=== PATIENT | male | born 1950 | race Caucasian/White ===

== ENCOUNTER 2022-08-16 21:46 | Inpatient (IN) | payer MEDICARE, OTHER ==
[~2022-08-16] VITALS: Ht 182.9 cm; Wt 74.4 kg
--- NOTE | 2022-08-16 21:50 | NUR ---
Dr. Michael at bedside. MSE in progress.
--- NOTE | 2022-08-16 21:56 | NUR ---
Patient is medically cleared by Dr. Michael.
--- NOTE | 2022-08-16 21:58 | NUR ---
Brittani notified for psych evaul.
[2022-08-16] MEDS ORDERED: LATA2.5D15 EACHEYE (22:06)
[2022-08-16] MEDS ORDERED: LOVA20TA2 PO (22:06)
[2022-08-16] MEDS ORDERED: METF-440 PO (22:06)
[2022-08-16] MEDS ORDERED: AMLO1CAP PO (22:06)
[2022-08-16] MEDS ORDERED: LINA5TAB PO (22:06)
--- NOTE | 2022-08-16 23:15 | NUR ---
Brittani has arrived.
--- NOTE | 2022-08-16 23:29 | NUR ---
Brittani at bedside.
--- NOTE | 2022-08-16 23:45 | NUR ---
Report given to Jimmy [place] [facility]
[2022-08-17] MEDS ORDERED: MAG HYDROX/AL HYDROX/SIMETH 30 ML LIQUID UDC PO PRN (00:15)
[2022-08-17] MEDS ORDERED: ZOLPIDEM 5 MG TABLET PO PRN (00:15)
[2022-08-17] MEDS ORDERED: ACETAMINOPHEN 325 MG TABLET PO PRN (00:15)
[2022-08-17] MEDS ORDERED: LORAZEPAM 1 MG TABLET PO PRN (00:15)
[2022-08-17] MEDS ORDERED: MAGNESIUM HYDROXIDE 30 ML LIQUID UDC PO PRN (00:15)
[2022-08-17] MEDS ORDERED: BLOOD SUGAR DIAGNOSTIC 1 EACH STRIP VI ONE (00:15)
--- NOTE | 2022-08-17 00:15 | NUR ---
Pt. admitted to [facility] , under care of Dr. Falcon/Nancy, RETAIL CASHIER Belongs List completed SHAYAN Wagner aware of patient's arrival to unit.
--- NOTE | 2022-08-17 00:30 | NUR ---
Admission Note: Admitted a 72 year male, brought to the ER from [facility] to be psychiatric evaluated. Pt was placed on a 5150 hold for GD and DTS status. Per hold ,pt was voicing SI and refusing to take antidepressant medications. Pt has previous hospitalizations and was diagnose with major depression and dementia. Up on Face to Face evaluation ,Pt seems guarded, withdrawn, depressed, low energy, disheveled unkept appearance. Pt is alert x3 but ambulatory with unsteady gate. Pt was cooperative with vital signs and physical assessment. Pt has a wound on right posterior ankle, wound consult was order. Pt also has redness and abrasion on sacrum area, Z-guard order was put in.Pt was offered a brief orientation to unit rules and policies. Pt was given a copy of Patients Rights handbook and Advisement. Pt belongings were accounted, no contraband. Pt is currently free from pain or any discomfort. Emotional support provided. Verbally contracted was made with this leader writer for safety. Fall and safety precautions Implemented. No acute distress noted at this time . Will continue to monitor for an increase in a depressive mood and signs of withdrawal and lack of interaction with other.
[2022-08-17 00:57] VITALS: BP 140/65
[2022-08-17] MEDS ORDERED: REMEDY ESSENTIAL ZINC PASTE 113 GM TOP PRN (01:30)
[2022-08-17 07:40] VITALS: BP 110/67
[2022-08-17] MEDS: VENLAFAXINE XR 37.5 MG CAP.SR.24H PO SCH (10:13)
[2022-08-17 10:37] LABS: THYROID STIMULATING HORMONE 0.898 mIU/mL (0.358-3.740)
[2022-08-17 16:13] VITALS: BP 128/71
[2022-08-17 20:00] VITALS: BP 140/60
[2022-08-17] MEDS: ATORVASTATIN 10 MG TABLET PO SCH (20:46)
[2022-08-17] MEDS: QUETIAPINE FUMARATE 25 MG TABLET PO SCH (20:46)
[2022-08-18 07:36] LABS: MEAN CORPUSCULAR HEMOGLOBIN 32.1 uug (23.8-33.4); MEAN CORPUSCULAR VOLUME 91.1 fL (73.0-96.2); PLATELET COUNT (AUTO) 162 K/uL (152-348)
[2022-08-18 07:48] VITALS: BP 138/74
[2022-08-18 07:54] LABS: BILIRUBIN,TOTAL 0.3 mg/dL (0.2-1.0); CREATININE 0.8 mg/dL (0.6-1.3); MAGNESIUM 1.9 mg/dL (1.8-2.4); PHOSPHOROUS 4.1 mg/dL (2.5-4.9); POTASSIUM 3.5 mmol/L (3.5-5.1); TOTAL PROTEIN, SERUM 6.3 g/dL (6.4-8.2)
[2022-08-18] MEDS: LINAGLIPTIN 5 MG TABLET PO SCH (08:47)
[2022-08-18] MEDS: VENLAFAXINE XR 37.5 MG CAP.SR.24H PO SCH (08:47)
[2022-08-18] MEDS: BENAZEPRIL HCL 20 MG TABLET PO SCH (08:48)
[2022-08-18] MEDS: AMLODIPINE 10 MG TABLET PO SCH (08:48)
[2022-08-18] MEDS ORDERED: Medication Not On Formulary EA (Amlodipine Besylate/Benazepril (Lotrel 10-20 Mg Capsule) PO SCH (09:00)
--- NOTE | 2022-08-18 14:28 | NUR ---
Patient is alert and oriented x 3,Isolative,withdrawn and depressed. Denies SI. Re-assured prn. Encouraged to get out of his room at times. Safety checks Q15 minutes as scheduled. Will continue to monitor.
[2022-08-18 16:19] VITALS: BP 110/66
[2022-08-18] MEDS ORDERED: LATANOPROST OPHT DROP 2.5 ML BOTTLE EACHEYE SCH (18:00)
[2022-08-18 20:03] VITALS: BP 131/68
[2022-08-18] MEDS: ATORVASTATIN 10 MG TABLET PO SCH (21:24)
[2022-08-18] MEDS: QUETIAPINE FUMARATE 25 MG TABLET PO SCH (21:26)
--- NOTE | 2022-08-19 06:08 | NUR ---
Pt is ambulatory, A/O X3, depressed, isolative, withdrawn and guarded. Pt does not interacts with staff or peers. Pt does not have a bailable plan of care. Pt denies SI and verbally contracted with this technical writer and editor for safety. Pt is compliant with medications and nursing care. Encourage pt to ventilate feelings. Reassurance provided, Safety measures put in place. Continue to monitor for safety, continue with treatment plan.
--- NOTE | 2022-08-19 07:30 | NUR ---
GPS Nursing Notes: Patient awake in bed, alert x 3, denies pain or discomforts at this time. Patient also denies SI/HI/VH/AH, stated, " I dont have a plan to hurt my self", encourage patient to express feeling and thought in appropriated manner. Patient contracted for safety at this time, fall and safety precautions implemented, emotional support provided. Will continue to monitor.
[2022-08-19] MEDS: LINAGLIPTIN 5 MG TABLET PO SCH (08:20)
[2022-08-19] MEDS: BENAZEPRIL HCL 20 MG TABLET PO SCH (08:20)
[2022-08-19 08:21] VITALS: BP 112/64
[2022-08-19] MEDS: AMLODIPINE 10 MG TABLET PO SCH (08:21)
[2022-08-19] MEDS: VENLAFAXINE XR 37.5 MG CAP.SR.24H PO SCH (08:26)
--- NOTE | 2022-08-19 10:37 | NUR ---
WOUND CARE CONSULT: PT PRESENTS WITH STAGE 2 SACRAL ULCER AND RT ANKLE ULCER, PRESENT ON ADMISSION. PT STATES HAS HAD THESE FOR AT LEAST A MONTH. DR WILSON CALLED FOR DPM CONSULT. DISCUSSED WOUND CARE AND SKIN PROTECTION WITH NURSING STAFF. IN AGREEMENT WITH PLAN OF CARE. Addendum: 08/19/22 at 1046 by MEHDI COVINGTON RN Amended: Links added.
--- NOTE | 2022-08-19 11:21 | NUR ---
GPS 14 Day hold Certification: Patient place on 5250, certification given to patient and explained. Patient was informed that a certification review hearing will be held with in four days. Also, patient's right advocate will call to provide city carrier assistant on answering his questions. The court has been notified of this certification via [facility] portal on this day.
--- NOTE | 2022-08-19 11:52 | NUR ---
[place] Initial Discharge Note: Pt was brought from [facility] located at [address] [facility]. [place] is currently working with pt's sister/DPOA, Olivia ([phone]) for pt's discharge location. [place] will continue to work with MD lauro and Olivia for pt's safe and proper discharge plan.
--- NOTE | 2022-08-19 11:56 | NUR ---
GPS Nursing notes: Patient seen by wound nurse today. Patient is isolative, flat affect denies pain or discomforts, Denies SI/HI/VH/AH, all needs met, will continue to monitor.
--- NOTE | 2022-08-19 13:36 | NUR ---
GPS Nursing notes: Patient is in his room,lying in bed, isolative, withdrawn, speaks only when spoken to. Encourage patient to reposition in bed q 2 hours and as need it for wound management, treatment done to sacral and right ankle done as ordered, consult with Tallier called in by Wound nurse. patient continue to denies SI/HI/VH/AH, patient contracted for safety. Emotional support provided. Will continue to monitor.
[2022-08-19 16:23] VITALS: BP 99/63
[2022-08-19] MEDS ORDERED: LATANOPROST OPHT DROP 2.5 ML BOTTLE EACHEYE SCH (18:05)
--- NOTE | 2022-08-19 18:23 | NUR ---
GPS Nursing notes: Patient is guarded, withdrawn, refused to participate with self-care or groups, continues to denies Self-harm, patient stated, "I just said that I want to hurt myself, because I was having a bad day at the facility I was at". Patient denies feel Suicidal at this time, emotional support provided. Contracted for safety. Dinkey Locomotive Engineer also spoke to sister (Olivia) per family member, she is the POA, and she will fax POA documents tomorrow @ [phone], technicians and trades workers aware. Will continue to monitor.
[2022-08-19 19:56] VITALS: BP 110/66
[2022-08-19] MEDS: LATANOPROST OPHT DROP 2.5 ML BOTTLE EACHEYE SCH (20:23)
[2022-08-19] MEDS: QUETIAPINE FUMARATE 25 MG TABLET PO SCH (20:23)
[2022-08-19] MEDS: ATORVASTATIN 10 MG TABLET PO SCH (20:23)
--- NOTE | 2022-08-20 06:31 | NUR ---
GPS: Pt.slept 7.30 last night. Goes to the bathroom for elimination purposes. Environment kept safe and hazard free at all times. Denies SI. Med.compliant. Needs attended.
[2022-08-20 08:12] VITALS: BP 123/67
[2022-08-20] MEDS: AMLODIPINE 10 MG TABLET PO SCH (08:34)
[2022-08-20] MEDS: VENLAFAXINE XR 37.5 MG CAP.SR.24H PO SCH (08:34)
[2022-08-20] MEDS: BENAZEPRIL HCL 20 MG TABLET PO SCH (08:34)
[2022-08-20] MEDS: LINAGLIPTIN 5 MG TABLET PO SCH (08:34)
[2022-08-20] MEDS: MEDIHONEY= THERAHONEY 1.5 OZ TUBE TOP SCH ×2 (08:35→17:20)
[2022-08-20] MEDS: AMMONIUM LACTATE 12% LOTION 225 GM BOTTLE TP SCH ×2 (08:35→17:21)
[2022-08-20] MEDS: SODIUM HYPOCHLORITE 0.125% (QUARTER STRENGTH) 473 ML BOTTLE TP SCH ×2 (08:40→17:20)
--- NOTE | 2022-08-20 15:38 | NUR ---
Received patient sleeping in his room. Patient is A/O X 3 to person, place. Patient is withdrawn, isolative, cooperative with nursing care, compliant with medications, depressed, not engaged in social activities. Patient does not requires assistance with ADL. Patient is encourage to vent feelings. Fall and safety precautions implemented.
[2022-08-20 16:19] VITALS: BP 121/66
[2022-08-20 20:00] VITALS: BP 140/66
[2022-08-20] MEDS: ATORVASTATIN 10 MG TABLET PO SCH (20:12)
[2022-08-20] MEDS: QUETIAPINE FUMARATE 25 MG TABLET PO SCH (20:12)
[2022-08-20] MEDS: LATANOPROST OPHT DROP 2.5 ML BOTTLE EACHEYE SCH (20:12)
[2022-08-21 07:51] VITALS: BP 115/73
[2022-08-21] MEDS: LINAGLIPTIN 5 MG TABLET PO SCH (08:58)
[2022-08-21] MEDS: AMLODIPINE 10 MG TABLET PO SCH (08:59)
[2022-08-21] MEDS: BENAZEPRIL HCL 20 MG TABLET PO SCH (09:00)
[2022-08-21] MEDS: VENLAFAXINE XR 37.5 MG CAP.SR.24H PO SCH (09:00)
[2022-08-21] MEDS: MEDIHONEY= THERAHONEY 1.5 OZ TUBE TOP SCH ×2 (09:00→17:41)
[2022-08-21] MEDS: AMMONIUM LACTATE 12% LOTION 225 GM BOTTLE TP SCH ×2 (09:01→17:41)
[2022-08-21] MEDS: SODIUM HYPOCHLORITE 0.125% (QUARTER STRENGTH) 473 ML BOTTLE TP SCH ×2 (09:01→17:42)
[2022-08-21 15:27] VITALS: BP 137/76
--- NOTE | 2022-08-21 15:36 | NUR ---
Received patient sleeping in his room. Patient is depressed, withdrawn, quiet, cooperative with nursing care, compliant with medications. Patient is A/O X 3 to person, place. Emotional support provided. Fall and safety precautions implemented.
[2022-08-21 20:02] VITALS: BP 126/72
[2022-08-21] MEDS: ATORVASTATIN 10 MG TABLET PO SCH (20:14)
[2022-08-21] MEDS: LATANOPROST OPHT DROP 2.5 ML BOTTLE EACHEYE SCH (20:14)
[2022-08-21] MEDS: QUETIAPINE FUMARATE 25 MG TABLET PO SCH (20:14)
[2022-08-22 07:30] VITALS: BP 120/74
[2022-08-22] MEDS: BENAZEPRIL HCL 20 MG TABLET PO SCH (09:00)
[2022-08-22] MEDS: AMLODIPINE 10 MG TABLET PO SCH (09:25)
[2022-08-22] MEDS: LINAGLIPTIN 5 MG TABLET PO SCH (09:25)
[2022-08-22] MEDS: AMMONIUM LACTATE 12% LOTION 225 GM BOTTLE TP SCH ×2 (09:26→17:02)
[2022-08-22] MEDS: SODIUM HYPOCHLORITE 0.125% (QUARTER STRENGTH) 473 ML BOTTLE TP SCH ×2 (09:26→17:02)
[2022-08-22] MEDS: MEDIHONEY= THERAHONEY 1.5 OZ TUBE TOP SCH ×2 (09:26→17:02)
[2022-08-22] MEDS ORDERED: VENLAFAXINE XR 75 MG TAB.ER.24H PO SCH (10:00)
[2022-08-22 15:31] VITALS: BP 107/71
--- NOTE | 2022-08-22 17:03 | NUR ---
Patient is depressed, isolative, quiet, withdrawn, not engage in conversations or group activities, compliant with medications, cooperative with nursing care. Patient is A/O X 3 to person, place. Patient right ankle wound is treated with Thera honey, serosanguineous drainage noted, gauze was wrapped around it. Emotional support provided. Fall and safety precautions implemented.
[2022-08-22 20:11] VITALS: BP 116/70
[2022-08-22] MEDS: QUETIAPINE FUMARATE 25 MG TABLET PO SCH (21:14)
[2022-08-22] MEDS: LATANOPROST OPHT DROP 2.5 ML BOTTLE EACHEYE SCH (21:14)
[2022-08-22] MEDS: ATORVASTATIN 10 MG TABLET PO SCH (21:14)
[2022-08-23 08:16] VITALS: BP 125/77
[2022-08-23] MEDS: BENAZEPRIL HCL 20 MG TABLET PO SCH (08:49)
[2022-08-23] MEDS: AMLODIPINE 10 MG TABLET PO SCH (08:49)
[2022-08-23] MEDS: LINAGLIPTIN 5 MG TABLET PO SCH (08:53)
[2022-08-23] MEDS: SODIUM HYPOCHLORITE 0.125% (QUARTER STRENGTH) 473 ML BOTTLE TP SCH ×2 (08:54→16:25)
[2022-08-23] MEDS: AMMONIUM LACTATE 12% LOTION 225 GM BOTTLE TP SCH ×2 (08:54→16:24)
[2022-08-23] MEDS: MEDIHONEY= THERAHONEY 1.5 OZ TUBE TOP SCH ×2 (08:55→16:25)
[2022-08-23] MEDS: VENLAFAXINE XR 37.5 MG CAP.SR.24H PO SCH (09:03)
--- NOTE | 2022-08-23 12:52 | NUR ---
Received patient is alert and oriented x 3,Isolative,withdrawn and depressed. Denies SI. Re-assured prn. Encouraged to get out of his room at times.wound care done as ordered Safety checks Q15 minutes as scheduled. Will continue to monitor.
[2022-08-23 15:54] VITALS: BP 106/62
[2022-08-23 19:30] VITALS: BP 113/55
[2022-08-23] MEDS: QUETIAPINE FUMARATE 25 MG TABLET PO SCH (21:27)
[2022-08-23] MEDS: ATORVASTATIN 10 MG TABLET PO SCH (21:27)
[2022-08-23] MEDS: LATANOPROST OPHT DROP 2.5 ML BOTTLE EACHEYE SCH (21:28)
[2022-08-24 07:58] VITALS: BP 111/62
--- NOTE | 2022-08-24 08:10 | NUR ---
GPS Nursing notes: Patient is up, walking to dayroom denies pain or discomforts at this time. Will continue to monitor.
[2022-08-24] MEDS: LINAGLIPTIN 5 MG TABLET PO SCH (08:23)
[2022-08-24] MEDS: GLUCERNA SHAKE 237 ML CAN PO SCH (08:23)
[2022-08-24] MEDS: VENLAFAXINE XR 37.5 MG CAP.SR.24H PO SCH (08:24)
[2022-08-24] MEDS: BENAZEPRIL HCL 20 MG TABLET PO SCH (09:36)
[2022-08-24] MEDS: AMMONIUM LACTATE 12% LOTION 225 GM BOTTLE TP SCH ×2 (09:37→16:30)
[2022-08-24] MEDS: AMLODIPINE 10 MG TABLET PO SCH (09:37)
[2022-08-24] MEDS: SODIUM HYPOCHLORITE 0.125% (QUARTER STRENGTH) 473 ML BOTTLE TP SCH ×2 (09:37→16:30)
[2022-08-24] MEDS: MEDIHONEY= THERAHONEY 1.5 OZ TUBE TOP SCH ×2 (09:37→16:30)
--- NOTE | 2022-08-24 13:15 | NUR ---
GPS Nursing notes: Patient is guarded, withdrawn, refused to participate with self-care or groups, continues to denies Self-harm, patient,denies feel Suicidal at this time, emotional support provided. Contracted for safety. Fall and safety implemented, Will continue to monitor.
[2022-08-24 16:34] VITALS: BP 103/64
[2022-08-24] MEDS: ATORVASTATIN 10 MG TABLET PO SCH (20:31)
[2022-08-24] MEDS: LATANOPROST OPHT DROP 2.5 ML BOTTLE EACHEYE SCH (20:31)
[2022-08-24] MEDS: QUETIAPINE FUMARATE 25 MG TABLET PO SCH (20:32)
[2022-08-24 20:39] VITALS: BP 90/60
--- NOTE | 2022-08-25 04:13 | NUR ---
Pt is still depressed, isolative, withdrawn and guarded, unkept appearance. Pt does not interacts with staff or peers, does not come out of room. Pt does not have a bailable plan of care. Pt denies SI and verbally contracted with this copywriter for safety. Pt is compliant with medications and nursing care. Encourage pt to ventilate feelings. Reassurance provided, Safety measures put in place. Continue to monitor for safety, continue with treatment plan.
[2022-08-25 08:02] VITALS: BP 108/57
[2022-08-25] MEDS: LINAGLIPTIN 5 MG TABLET PO SCH (08:31)
[2022-08-25] MEDS: BENAZEPRIL HCL 20 MG TABLET PO SCH (08:34)
[2022-08-25] MEDS: AMLODIPINE 10 MG TABLET PO SCH (08:34)
[2022-08-25] MEDS: VENLAFAXINE XR 37.5 MG CAP.SR.24H PO SCH (08:34)
[2022-08-25] MEDS: GLUCERNA SHAKE 237 ML CAN PO SCH (08:57)
[2022-08-25] MEDS: MEDIHONEY= THERAHONEY 1.5 OZ TUBE TOP SCH ×2 (08:58→17:11)
[2022-08-25] MEDS: AMMONIUM LACTATE 12% LOTION 225 GM BOTTLE TP SCH ×2 (08:58→17:11)
[2022-08-25] MEDS: SODIUM HYPOCHLORITE 0.125% (QUARTER STRENGTH) 473 ML BOTTLE TP SCH ×2 (08:59→17:12)
[2022-08-25] MEDS ORDERED: VENLAFAXINE XR 37.5 MG CAP.SR.24H PO SCH (13:00)
--- NOTE | 2022-08-25 14:10 | NUR ---
Received patient is alert and oriented x 3,Isolative,withdrawn and depressed ,no interaction with other peers and staffs Denies SI. Re-assured prn. Encouraged to get out of his room at times.wound care done as ordered Safety checks Q15 minutes as scheduled. Will continue to monitor.
[2022-08-25 16:19] VITALS: BP 130/79
[2022-08-25 20:04] VITALS: BP 114/60
[2022-08-25] MEDS: ATORVASTATIN 10 MG TABLET PO SCH (20:57)
[2022-08-25] MEDS: LATANOPROST OPHT DROP 2.5 ML BOTTLE EACHEYE SCH (20:58)
[2022-08-25] MEDS: QUETIAPINE FUMARATE 25 MG TABLET PO SCH (20:58)
[2022-08-26 08:02] VITALS: BP 112/74
[2022-08-26] MEDS: AMLODIPINE 10 MG TABLET PO SCH (08:48)
[2022-08-26] MEDS: LINAGLIPTIN 5 MG TABLET PO SCH (08:49)
[2022-08-26] MEDS: VENLAFAXINE XR 37.5 MG CAP.SR.24H PO SCH (08:49)
[2022-08-26] MEDS: BENAZEPRIL HCL 20 MG TABLET PO SCH (08:49)
[2022-08-26] MEDS: GLUCERNA SHAKE 237 ML CAN PO SCH (08:50)
[2022-08-26] MEDS: SODIUM HYPOCHLORITE 0.125% (QUARTER STRENGTH) 473 ML BOTTLE TP SCH ×2 (08:55→17:08)
[2022-08-26] MEDS: MEDIHONEY= THERAHONEY 1.5 OZ TUBE TOP SCH ×2 (08:56→17:09)
[2022-08-26] MEDS: AMMONIUM LACTATE 12% LOTION 225 GM BOTTLE TP SCH ×2 (08:56→17:09)
--- NOTE | 2022-08-26 11:53 | NUR ---
[place] Discharge Update: [place] spoke with pt's sister/DPOA, Olivia ([phone]) and discussed [facility] plan [facility]. Pt will continue care at a facility that [facility] will refer out near [facility]. [place]IS will continue to update Olivia and ensure a safe and proper discharge plan for the pt.
[2022-08-26 15:38] VITALS: BP 137/79
[2022-08-26 20:00] VITALS: BP 92/65
[2022-08-26] MEDS: ATORVASTATIN 10 MG TABLET PO SCH (20:30)
[2022-08-26] MEDS: LATANOPROST OPHT DROP 2.5 ML BOTTLE EACHEYE SCH (20:30)
[2022-08-26] MEDS: QUETIAPINE FUMARATE 25 MG TABLET PO SCH (20:30)
--- NOTE | 2022-08-27 07:30 | NUR ---
GPS Nursing notes: Patient is awake in bed, depressed mood, flat affect, "I guess I feel fine". Denies SI/HI/VH/AH, Encourage patient to verbalized thought and feeling, but patient is vague, "I dont know". Educated patient on the importance to participate with self-care and daily activities. fall and safety precautions implemented, emotional support provided.
[2022-08-27 08:11] VITALS: BP 105/55
[2022-08-27] MEDS: LINAGLIPTIN 5 MG TABLET PO SCH (09:06)
[2022-08-27] MEDS: BENAZEPRIL HCL 20 MG TABLET PO SCH (09:06)
[2022-08-27] MEDS: AMLODIPINE 10 MG TABLET PO SCH (09:07)
[2022-08-27] MEDS: VENLAFAXINE XR 37.5 MG CAP.SR.24H PO SCH (09:07)
[2022-08-27] MEDS: SODIUM HYPOCHLORITE 0.125% (QUARTER STRENGTH) 473 ML BOTTLE TP SCH ×2 (09:07→16:34)
[2022-08-27] MEDS: AMMONIUM LACTATE 12% LOTION 225 GM BOTTLE TP SCH ×2 (09:07→16:34)
[2022-08-27] MEDS: GLUCERNA SHAKE 237 ML CAN PO SCH (09:08)
[2022-08-27] MEDS: MEDIHONEY= THERAHONEY 1.5 OZ TUBE TOP SCH ×2 (09:08→16:34)
--- NOTE | 2022-08-27 14:20 | NUR ---
GPS Nursing notes: Patient attended AM group, but when back to bed, denies pain or discomforts, denies SI/HI/VH/AH, wound care done as ordered, patient tolerated well. patient is medications compliant. Fall and safety precaution implemented, emotional support provided.
[2022-08-27 16:00] VITALS: BP 120/74
[2022-08-27 20:00] VITALS: BP 130/71
[2022-08-27] MEDS: QUETIAPINE FUMARATE 25 MG TABLET PO SCH (20:33)
[2022-08-27] MEDS: LATANOPROST OPHT DROP 2.5 ML BOTTLE EACHEYE SCH (20:33)
[2022-08-27] MEDS: ATORVASTATIN 10 MG TABLET PO SCH (20:33)
--- NOTE | 2022-08-28 07:30 | NUR ---
GPS Nursing notes: Patient in bed awake, denies pain or discomforts, Denies suicidal thoughts at this time, fall and safety precautions implemented , emotional support provided.
[2022-08-28 07:53] VITALS: BP 101/63
[2022-08-28] MEDS: MEDIHONEY= THERAHONEY 1.5 OZ TUBE TOP SCH ×2 (08:48→16:19)
[2022-08-28] MEDS: SODIUM HYPOCHLORITE 0.125% (QUARTER STRENGTH) 473 ML BOTTLE TP SCH ×2 (08:49→16:19)
[2022-08-28] MEDS: AMMONIUM LACTATE 12% LOTION 225 GM BOTTLE TP SCH ×2 (08:49→16:19)
[2022-08-28] MEDS: VENLAFAXINE XR 37.5 MG CAP.SR.24H PO SCH (08:51)
[2022-08-28] MEDS: AMLODIPINE 10 MG TABLET PO SCH (08:51)
[2022-08-28] MEDS: BENAZEPRIL HCL 20 MG TABLET PO SCH (08:51)
[2022-08-28] MEDS: GLUCERNA SHAKE 237 ML CAN PO SCH (08:52)
[2022-08-28] MEDS: LINAGLIPTIN 5 MG TABLET PO SCH (08:53)
--- NOTE | 2022-08-28 13:30 | NUR ---
GPS Nursing Notes: Patient reported having diarrhea x2 . SUPPORT ASSISTANT notified, per SUPPORT ASSISTANT collect stool to collect for C-diff.
[2022-08-28 15:24] VITALS: BP 94/49
--- NOTE | 2022-08-28 16:38 | NUR ---
Received pt in kimber awake A/O X 3 is still very depressed, isolative, withdrawn, disheveled unkept appearance. Pt does not interacts with staff or peers, does not come out of room and stays in bed all day. Pt does not have a bailable plan of care. Pt denies SI and verbally contracted with this flex o writer operator for safety. Pt is compliant with medications and nursing care. Encourage pt to ventilate feelings. Reassurance provided, Safety measures put in place. Continue to monitor for safety, continue with treatment plan.
[2022-08-28 19:56] VITALS: BP 100/56
[2022-08-28] MEDS: QUETIAPINE FUMARATE 25 MG TABLET PO SCH (20:23)
[2022-08-28] MEDS: ATORVASTATIN 10 MG TABLET PO SCH (20:23)
[2022-08-28] MEDS: LATANOPROST OPHT DROP 2.5 ML BOTTLE EACHEYE SCH (20:23)
[2022-08-29 08:18] VITALS: BP 120/64
[2022-08-29] MEDS: BENAZEPRIL HCL 20 MG TABLET PO SCH (08:55)
[2022-08-29] MEDS: VENLAFAXINE XR 37.5 MG CAP.SR.24H PO SCH (08:55)
[2022-08-29] MEDS: LINAGLIPTIN 5 MG TABLET PO SCH (08:56)
[2022-08-29] MEDS: AMLODIPINE 10 MG TABLET PO SCH (08:57)
[2022-08-29] MEDS: PROTEIN SUPPLEMENT (PROSTAT) 30 ML LIQUID PO SCH ×2 (08:58→17:00)
[2022-08-29] MEDS: MEDIHONEY= THERAHONEY 1.5 OZ TUBE TOP SCH ×2 (09:01→17:11)
[2022-08-29] MEDS: AMMONIUM LACTATE 12% LOTION 225 GM BOTTLE TP SCH ×2 (09:04→17:08)
[2022-08-29] MEDS: SODIUM HYPOCHLORITE 0.125% (QUARTER STRENGTH) 473 ML BOTTLE TP SCH ×2 (09:05→17:09)
--- NOTE | 2022-08-29 15:46 | NUR ---
Pt is still depressed, isolative, withdrawn. Pt attended group activities with encouragement. Pt engage and interacted briefly with peers and staff members during group time. Pt does not have a bailable plan of care. Pt denies SI and verbally contracted with this technical document writer for safety. Pt is compliant with medications and nursing care. Encourage pt to ventilate feelings. Reassurance provided, Safety measures put in place. Continue to monitor for safety, continue with treatment plan.
[2022-08-29 15:58] VITALS: BP 104/58
[2022-08-29 19:53] VITALS: BP 112/65
[2022-08-29] MEDS: ATORVASTATIN 10 MG TABLET PO SCH (20:15)
[2022-08-29] MEDS: QUETIAPINE FUMARATE 25 MG TABLET PO SCH (20:15)
[2022-08-29] MEDS: LATANOPROST OPHT DROP 2.5 ML BOTTLE EACHEYE SCH (20:27)
[2022-08-30 07:34] VITALS: BP 118/66
[2022-08-30] MEDS: PROTEIN SUPPLEMENT (PROSTAT) 30 ML LIQUID PO SCH (09:00)
[2022-08-30 09:08] VITALS: BP 118/66
[2022-08-30] MEDS: BENAZEPRIL HCL 20 MG TABLET PO SCH (09:08)
[2022-08-30] MEDS: LINAGLIPTIN 5 MG TABLET PO SCH (09:08)
[2022-08-30] MEDS: AMLODIPINE 10 MG TABLET PO SCH (09:08)
[2022-08-30] MEDS: SODIUM HYPOCHLORITE 0.125% (QUARTER STRENGTH) 473 ML BOTTLE TP SCH (09:09)
[2022-08-30] MEDS: MEDIHONEY= THERAHONEY 1.5 OZ TUBE TOP SCH (09:10)
[2022-08-30] MEDS: AMMONIUM LACTATE 12% LOTION 225 GM BOTTLE TP SCH (09:10)
[2022-08-30] MEDS: VENLAFAXINE XR 37.5 MG CAP.SR.24H PO SCH (09:21)
--- NOTE | 2022-08-30 10:00 | NUR ---
Received pt in room awake , depressed mood ,calm up on approach, responding to his name. Pt is alert oriented x3, compliant with medications and nursing care. Pt needs minimal assistance with ADLs, wound care done as ordered, patient tolerated well.Pt is schedule for discharge at 1100 to [facility]. Pt denies SI and verbally contracted for safety. Fall and safety precaution implemented, emotional support provided. No acute distress noted continue to monitor for safety , continue with treatment plan.
--- NOTE | 2022-08-30 10:25 | NUR ---
[place] DISCHARGE SCREENER: [place] completed a discharge screener with the pt.
--- NOTE | 2022-08-30 10:50 | NUR ---
[place] DISCHARGE NOTE: Pt will be discharged to [facility] residential [address] [address]) [phone] via FACILITY TRANSPORTATION by non-emergency medical transport at 11AM. [place] spoke with Dilcia at the facility who states they are ready to accept the patient today. Pt is aware and agreeable with discharge plan. Pt's sister/DPOA, Olivia ([phone]) is aware and agreeable with the discharge plan. Pt is alert and oriented x4, is unable to plan for self-care at this time. However, pt is willing to accept care at SNF. Pt denies any suicidal or homicidal ideation. Pt will follow-up at the facility with Psychiatrist, Dr. Denny and Help Desk Supervisor, Dr. Perez. Pt presents with calm mood and congruent affect. PHARMACY: [facility] [address] [facility] .
--- NOTE | 2022-08-30 11:45 | NUR ---
Receive [facility] [address] [address]) [phone] via Facility Transportation by non-emergency medical transport at 11AM. SW spoke with Dilcia at the facility who states they are ready to accept the patient today. Pt is aware and agreeable with discharge plan. Pt's sister/DPOA, Olivia ([phone]) is aware and agreeable with the discharge plan. Pt is alert and oriented x3, is unable to plan for self-care at this time. Pt denies SI/HI, AH/VH, SOB and pain. No acute distress noted. Pt presents with calm mood and congruent affect. All belongings were returned to pt.Pt left unit at 1145. Reassurance and Emotional support provided.
== END 2022-08-30 11:45 | DRG 885 ==
LOC: ER 21:46 → GPS 23:58
PROVIDERS: ADMIT Psychiatry & Neurology Psychiatry; ATTEND Internal Medicine
DX: F33.3 Major depressive disorder, recurrent, severe with psychotic symptoms (principal); L97.312 Non-pressure chronic ulcer of right ankle with fat layer exposed; L03.115 Cellulitis of right lower limb; R45.851 Suicidal ideations; E44.0 Moderate protein-calorie malnutrition; F03.918 Unspecified dementia, unspecified severity, with other behavioral disturbance; M19.072 Primary osteoarthritis, left ankle and foot; M20.32 Hallux varus (acquired), left foot; E11.622 Type 2 diabetes mellitus with other skin ulcer; Z79.84 Long term (current) use of oral hypoglycemic drugs; E78.5 Hyperlipidemia, unspecified; H40.9 Unspecified glaucoma; F17.211 Nicotine dependence, cigarettes, in remission; E88.09 Other disorders of plasma-protein metabolism, not elsewhere classified; Z68.22 Body mass index [BMI] 22.0-22.9, adult; I10 Essential (primary) hypertension; D64.9 Anemia, unspecified; Z20.822 Contact with and (suspected) exposure to COVID-19
CPT/HCPCS: 36415; 83735; 84100; 84443; 85025; A4663; A6209